=== PATIENT | female | born 1975 | race Two or more races ===

== ENCOUNTER 2018-05-22 15:39 | Inpatient (IN) | payer OTHER ==
[~2018-05-22] VITALS: Ht 154.9 cm; Wt 3.2 kg
[2018-05-26] MEDS ORDERED: PRENATAL 19 TA1 EACH PO (10:03)
[2018-05-26] MEDS ORDERED: FLONASE16 GM NASAL (10:04)
[2018-05-26] MEDS ORDERED: ZANTAC 7575 MG PO (10:04)
== END 2018-06-10 13:23 | DRG 766 ==
LOC: O/R 06-07 06:15 → OB/GYN 06-07 07:00 → SURG-SUITE 06-07 10:36
PROVIDERS: Obstetrics & Gynecology
PROC: 4A1HXCZ Monitoring of Products of Conception, Cardiac Rate, External Approach (ICD-10-PCS; 2018-06-07)
PROC: 10D00Z1 Extraction of Products of Conception, Low, Open Approach (ICD-10-PCS; principal; 2018-06-07 07:00)
DX: O34.211 Maternal care for low transverse scar from previous cesarean delivery (principal); Z3A.39 39 weeks gestation of pregnancy; Z37.0 Single live birth

== ENCOUNTER 2018-11-13 08:47 | Outpatient (CLI) | payer OTHER ==
[~2018-11-13 08:47] MED LIST: FLONASE16 GM NASAL; PRENATAL 19 TA1 EACH PO; ZANTAC 7575 MG PO
== END 2018-11-13 09:11 | disposition home or self-care (01) ==
LOC: RAD 08:47
DX: M99.01 Segmental and somatic dysfunction of cervical region (principal); M99.02 Segmental and somatic dysfunction of thoracic region; M99.03 Segmental and somatic dysfunction of lumbar region; N60.11 Diffuse cystic mastopathy of right breast

== ENCOUNTER 2020-04-11 10:32 | Outpatient (CLI) | payer OTHER | END 2020-04-11 10:49 | disposition home or self-care (01) | LOC: MAMO-SONO 10:32 | PROVIDERS: ATTEND Obstetrics & Gynecology | DX: Z12.31 Encounter for screening mammogram for malignant neoplasm of breast (principal); N60.11 Diffuse cystic mastopathy of right breast ==